=== PATIENT | male | born 1940 | race Caucasian/White ===

== ENCOUNTER 2016-02-11 13:59 | Outpatient (CLI) | payer MEDICARE, OTHER | END 2016-02-11 14:00 | disposition home or self-care (01) | LOC: BURLAB 13:59 | PROVIDERS: ATTEND Family Medicine | DX: I82.409 Acute embolism and thrombosis of unspecified deep veins of unspecified lower extremity (principal) | CPT/HCPCS: 36415; 85610 ==

== ENCOUNTER 2016-03-08 15:59 | Outpatient (CLI) | payer MEDICARE, OTHER ==
[2016-03-08 16:32] LABS: #Basophils 0.1 thou/uL (0.0-0.2); #Eosinphils 0.1 thou/uL (0.0-0.7); #Lymphocytes 3.7 thou/uL (1.20-3.40); #Monocytes 0.6 thou/uL (0.11-0.59); #Neutrophils 3.7 thou/uL (1.40-6.50); %Basophils 0.9 % (0.0-1.0); %Eosinophils 1.5 % (0.0-10.0); %Monocytes 6.8 % (0.0-10.0); Hematocrit 40.9 % (42.0-52.0); Mean Platelet Volume 6.2 fL (7.4-10.4); Red Blood Cell (RBC) Count 4.39 mill/uL (4.70-6.10); White Blood Cell (WBC) Count 8.1 thou/uL (4.8-10.8)
[2016-03-08 16:36] LABS: Prothrombin Time 27.3 SEC (12.0-14.7)
[2016-03-08 16:46] LABS: ALT (SGPT) 23 U/L (0-55); AST (SGOT) 24 U/L (5-34); Alkaline Phosphatase 54 U/L (40-150); Anion Gap 14 mmol/L (10-20); BUN (Urea Nitrogen) 25 mg/dL (8.4-25.7); Bilirubin, Total 0.6 mg/dL (0.2-1.2); Calc. Creatinine Clearance 0 mL/min (70-130); Calcium 8.7 mg/dL (7.8-10.44); Carbon Dioxide 23 mmol/L (23-31); Chloride 109 mmol/L (98-107); Estimated GFR-MDRD 46; Protein, Total 7.2 g/dL (5.8-8.1)
== END 2016-03-08 16:00 | disposition home or self-care (01) ==
LOC: HPCALD 15:59
PROVIDERS: ATTEND Family Medicine
DX: I82.409 Acute embolism and thrombosis of unspecified deep veins of unspecified lower extremity (principal); R53.83 Other fatigue; R41.3 Other amnesia
CPT/HCPCS: 36415; 80053; 82607; 84443; 85025; 85610

== ENCOUNTER 2016-04-07 13:31 | Outpatient (CLI) | payer MEDICARE, OTHER ==
[2016-04-07 13:56] LABS: Prothrombin Time 31.7 SEC (12.0-14.7)
== END 2016-04-07 13:32 | disposition home or self-care (01) ==
LOC: BURLAB 13:31
PROVIDERS: ATTEND Family Medicine
DX: I82.409 Acute embolism and thrombosis of unspecified deep veins of unspecified lower extremity (principal)
CPT/HCPCS: 36415; 85610

== ENCOUNTER 2016-05-05 13:56 | Outpatient (CLI) | payer MEDICARE, OTHER ==
[2016-05-05 14:58] LABS: INR-International Normal Ratio 3.1; Prothrombin Time 31.4 SEC (12.0-14.7)
== END 2016-05-05 13:57 | disposition home or self-care (01) ==
LOC: BURLAB 13:56
PROVIDERS: ATTEND Family Medicine
DX: I82.409 Acute embolism and thrombosis of unspecified deep veins of unspecified lower extremity (principal)
CPT/HCPCS: 36415; 85610

== ENCOUNTER 2016-05-25 18:41 | Emergency (ER) | payer MEDICARE, OTHER ==
[2016-05-25] MEDS ORDERED: HYDROcodone/Acetaminophen 10/325 mg Tablet ONE (19:55)
[2016-05-25] MEDS ORDERED: Ibuprofen 800 MG TAB ONE (19:56)
--- NOTE | 2016-05-25 22:26 | RAD ---
LEFT THUMB THREE VIEWS: 05/25/16 Comparison is made with the films of the hand done earlier. There has been a successful reduction of the dislocation of the thumb. The rounded bony density on the volar aspect of the IP joint may actu ally be an accessory ossicle. IMPRESSION: Successful reduction. POS: HOME
--- NOTE | 2016-05-25 22:28 | RAD ---
LEFT HAND THREE VIEWS: 05/25/16 There is a dorsal dislocation of the thumb at the IP joint. One of the views suggests some small cor tical avulsions. There also are sesamoid bones involved in this joint as well. Elsewhere in the hand, one sees some arterial calcifications and some mild arthritic changes in the IP joints of the fingers. IMPRESSION: Dorsal thumb dislocation. POS: HOME
--- NOTE | 2016-05-25 22:38 | RAD ---
CHEST TWO VIEWS: 05/25/16 Comparison is made with a 08/25/15 study. The heart is mildly enlarged but unchanged in size. The mediastinum shows no widening or shift. Medi an sternotomy sutures are noted from prior surgery. There is no vascular congestion, edema or acute infiltrate. There are a few areas of focal pleural thickening along the left lateral hemithorax, particularly ad jacent to the left 7th and 8th ribs. Fractures here are probable, but it would probably take dedicat ed rib films to be certain. There is no sign of pneumothorax. IMPRESSION: 1. Mild cardiomegaly, unchanged. 2. Areas of pleural thickening on the left that are suspicious for secondary findings from frac tures of possibly the 7th and 8th ribs. POS: HOME
== END 2016-05-25 20:28 | disposition home or self-care (01) ==
LOC: BURERS 18:41
DX: S22.32XA Fracture of one rib, left side, initial encounter for closed fracture (principal); S63.1 Subluxation and dislocation of thumb; I10 Essential (primary) hypertension; E78.5 Hyperlipidemia, unspecified; F41.9 Anxiety disorder, unspecified; Z79.899 Other long term (current) drug therapy; W18.30XA Fall on same level, unspecified, initial encounter
CPT/HCPCS: 26770; 71020

== ENCOUNTER 2016-06-02 15:44 | Outpatient (CLI) | payer MEDICARE, OTHER ==
[2016-06-02 16:02] LABS: INR-International Normal Ratio 3.1; Prothrombin Time 33.1 SEC (12.0-14.7)
== END 2016-06-02 15:45 | disposition home or self-care (01) ==
LOC: BURLAB 15:44
PROVIDERS: ATTEND Family Medicine
DX: I82.409 Acute embolism and thrombosis of unspecified deep veins of unspecified lower extremity (principal)
CPT/HCPCS: 36415; 85610

== ENCOUNTER 2016-07-10 10:04 | Outpatient (CLI) | payer MEDICARE, OTHER ==
[2016-07-10 11:05] LABS: INR-International Normal Ratio 2.8
== END 2016-07-10 10:05 ==
LOC: HPCALD 10:04
PROVIDERS: ATTEND Family Medicine
DX: I82.409 Acute embolism and thrombosis of unspecified deep veins of unspecified lower extremity (principal)
CPT/HCPCS: 36415; 85610

== ENCOUNTER 2016-08-14 18:27 | Emergency (ER) | payer MEDICARE, OTHER ==
[2016-08-14 18:58] LABS: #Basophils 0.1 thou/uL (0.0-0.2); #Lymphocytes 2.4 thou/uL (1.20-3.40); #Monocytes 0.7 thou/uL (0.11-0.59); %Basophils 0.4 % (0.0-1.0); %Eosinophils 0.3 % (0.0-10.0); %Lymphocytes 19.5 % (21.0-51.0); %Monocytes 5.5 % (0.0-10.0); %Neutrophils 74.3 % (42.0-75.0); Hemoglobin 14.1 g/dL (14.0-18.0); Mean Corpuscular HGB CONC 33.6 g/dL (32.0-36.0); Mean Corpuscular Volume 92.2 fl (80.0-94.0); Mean Platelet Volume 6.8 fL (7.4-10.4); Platelet Count 190 thou/uL (130-400); RBC Distribution Width 13.8 % (11.5-14.5); Red Blood Cell (RBC) Count 4.55 mill/uL (4.70-6.10); White Blood Cell (WBC) Count 12.1 thou/uL (4.8-10.8)
[2016-08-14 19:13] LABS: ALT (SGPT) 33 U/L (8-55); AST (SGOT) 32 U/L (5-34); Albumin 4.2 g/dL (3.4-4.8); Alkaline Phosphatase 57 U/L (40-150); Anion Gap 17 mmol/L (10-20); BUN (Urea Nitrogen) 23 mg/dL (8.4-25.7); Bilirubin, Total 0.6 mg/dL (0.2-1.2); Calc. Creatinine Clearance 0 mL/min (70-130); Calcium 8.7 mg/dL (7.8-10.44); Carbon Dioxide 21 mmol/L (23-31); Chloride 112 mmol/L (98-107); Estimated GFR-MDRD 33; Globulin 3.6 g/dL (2.4-3.5); Glucose 105 mg/dL (83-110); Lipase 17 U/L (8-78); Potassium 4.7 mmol/L (3.5-5.1); Protein, Total 7.8 g/dL (5.8-8.1); Sodium 145 mmol/L (136-145)
[2016-08-14 19:16] LABS: Bilirubin Negative (Negative); Blood, Urine Negative (Negative); Clarity Clear (Clear); Glucose, Urine (Dipstick) Negative (Negative); Leukocyte Negative (Negative); Nitrite Negative (Negative); Protein, Urine (Dipstick) Trace mg/dL (Neg-Trace); Specific Gravity, Urine 1.025 (1.005-1.030); Urobilinogen 0.2 mg/dL (0.2-1.0)
[2016-08-14] MEDS ORDERED: Ondansetron HCl/PF 4 MG/2 ML Vial ONE (19:27)
--- NOTE | 2016-08-14 21:49 | CT ---
CT ABDOMEN AND PELVIS WITHOUT CONTRAST RENAL STONE PROTOCOL: Date: 08-14-16 Comparison: 01-07-02 Axial slices were acquired then coronal reconstructions were done. FINDINGS: Bilateral renal calculi are present. In addition, there is mild right hydronephrosis due to distal u reteral calculi. There is a 3-4 mm calculus a couple of centimeters shy of the right UVJ and there i s an additional 2 mm calculus at the right UVJ. No ureteral calculi were seen on the left side. The lung bases are clear. The liver, spleen, pancreas and adrenal glands were unremarkable within th e limitations of a noncontrast study. The aorta shows no aneurysm. There has been a prior cholecyste ctomy. The bowel is nondistended with no sign of obstruction. No inflammatory changes are seen in or around bowel. No free air or free fluid was present. CT of the pelvis was remarkable only for the distal right ureteral calculi. No inflammatory changes or free fluid was seen. Large course calcifications are seen in the patient's prostate gland. Degene rative changes are present throughout the lumbar spine. IMPRESSION: 1. Bilateral ureteral calculi. 2. Mild right hydronephrosis secondary to two distal right ureteral calculi near the UVJ. POS: HOME
== END 2016-08-14 19:53 | disposition home or self-care (01) ==
LOC: BURERS 18:27
DX: N13.2 Hydronephrosis with renal and ureteral calculous obstruction (principal); I10 Essential (primary) hypertension; E78.5 Hyperlipidemia, unspecified; F41.9 Anxiety disorder, unspecified; Z86.718 Personal history of other venous thrombosis and embolism; Z79.01 Long term (current) use of anticoagulants; Z79.899 Other long term (current) drug therapy; Z79.891 Long term (current) use of opiate analgesic
CPT/HCPCS: 36415; 74176; 80053; 81003; 83690; 85025; 87086; 96374; 96375; J2270; J2405

== ENCOUNTER 2016-09-13 14:29 | Outpatient (CLI) | payer MEDICARE, OTHER ==
[2016-09-13 15:05] LABS: INR-International Normal Ratio 2.5; Prothrombin Time 28.4 SEC (12.0-14.7)
== END 2016-09-13 14:30 | disposition home or self-care (01) ==
LOC: BURLAB 14:29
PROVIDERS: ATTEND Family Medicine
DX: I82.409 Acute embolism and thrombosis of unspecified deep veins of unspecified lower extremity (principal)
CPT/HCPCS: 36415; 85610

== ENCOUNTER 2016-10-13 12:28 | Outpatient (CLI) | payer MEDICARE, OTHER ==
[2016-10-13 13:17] LABS: Prothrombin Time 32.3 SEC (12.0-14.7)
== END 2016-10-13 12:29 | disposition home or self-care (01) ==
LOC: BURLAB 12:28
PROVIDERS: ATTEND Family Medicine
DX: I82.409 Acute embolism and thrombosis of unspecified deep veins of unspecified lower extremity (principal)
CPT/HCPCS: 36415; 85610

== ENCOUNTER 2016-10-31 19:23 | Emergency (ER) | payer MEDICARE, OTHER ==
[2016-10-31] MEDS ORDERED: cefTRIAXone\\ROCEPHIN 1 GM VIAL ONE (19:47)
[2016-10-31] MEDS ORDERED: Sodium Chloride 0.9% 100 ML ONE (19:47)
[2016-10-31 19:53] LABS: #Basophils 0.1 thou/uL (0.0-0.2); #Eosinphils 0.1 thou/uL (0.0-0.7); #Lymphocytes 3.2 thou/uL (1.20-3.40); #Monocytes 0.7 thou/uL (0.11-0.59); #Neutrophils 9.7 thou/uL (1.40-6.50); %Basophils 0.5 % (0.0-1.0); %Eosinophils 0.8 % (0.0-10.0); %Lymphocytes 23.2 % (21.0-51.0); %Monocytes 4.7 % (0.0-10.0); %Neutrophils 70.7 % (42.0-75.0); Hemoglobin 12.9 g/dL (14.0-18.0); Mean Corpuscular Hemoglobin 31.2 pg (27.0-31.0); Mean Corpuscular Volume 94.5 fl (80.0-94.0); Mean Platelet Volume 6.7 fL (7.4-10.4); Platelet Count 167 thou/uL (130-400); RBC Distribution Width 14.2 % (11.5-14.5); Red Blood Cell (RBC) Count 4.13 mill/uL (4.70-6.10); White Blood Cell (WBC) Count 13.7 thou/uL (4.8-10.8)
[2016-10-31 20:04] LABS: PTT 74.1 SEC (22.9-36.1); Prothrombin Time 42.5 SEC (12.0-14.7)
[2016-10-31 20:11] LABS: ALT (SGPT) 34 U/L (8-55); AST (SGOT) 22 U/L (5-34); Albumin 3.9 g/dL (3.4-4.8); Alkaline Phosphatase 56 U/L (40-150); Anion Gap 16 mmol/L (10-20); BUN (Urea Nitrogen) 28 mg/dL (8.4-25.7); Bilirubin, Total 0.5 mg/dL (0.2-1.2); Calc. Creatinine Clearance 0 mL/min (70-130); Calcium 8.7 mg/dL (7.8-10.44); Carbon Dioxide 20 mmol/L (23-31); Chloride 113 mmol/L (98-107); Estimated GFR-MDRD 35; Globulin 3.2 g/dL (2.4-3.5); Glucose 167 mg/dL (83-110); Potassium 4.5 mmol/L (3.5-5.1); Protein, Total 7.1 g/dL (5.8-8.1); Sodium 144 mmol/L (136-145)
[2016-10-31 20:19] LABS: INR-International Normal Ratio 4.2
== END 2016-10-31 20:35 | disposition home or self-care (01) ==
LOC: BURERS 19:23
DX: L03.115 Cellulitis of right lower limb (principal); I10 Essential (primary) hypertension; E78.5 Hyperlipidemia, unspecified; F41.9 Anxiety disorder, unspecified; F03.90 Unspecified dementia, unspecified severity, without behavioral disturbance, psychotic disturbance, mood disturbance, and anxiety; Z86.718 Personal history of other venous thrombosis and embolism
CPT/HCPCS: 80053; 85025; 85610; 85730; 96374; J0696; J7050

== ENCOUNTER 2016-11-10 10:29 | Outpatient (CLI) | payer MEDICARE, OTHER ==
--- NOTE | 2016-11-10 22:47 | ULT ---
RIGHT LOWER EXTREMITY VENOUS ULTRASOUND 11/10/16 Color duplex doppler ultrasonography of the right lower extremity was performed. No echogenic clot w as seen. All deep veins were freely compressible from groin to ankle. There was normal doppler respo nse to augmentation maneuvers. IMPRESSION: No evidence of DVT. POS: HOME
== END 2016-11-10 10:30 | disposition home or self-care (01) ==
LOC: BURULT 10:29
PROVIDERS: ATTEND Family Medicine
DX: M79.604 Pain in right leg (principal)

== ENCOUNTER 2016-12-11 17:47 | Emergency (ER) | payer MEDICARE, OTHER ==
[2016-12-11] MEDS ORDERED: Lidocaine 1% w/Epinephrine 1:100K 30 ML VIAL ONE (17:54)
[2016-12-11] MEDS ORDERED: Bacitracin Zinc 1 Packet ONE (18:38)
== END 2016-12-11 18:45 | disposition home or self-care (01) ==
LOC: BURERS 17:47
DX: S81.811A Laceration without foreign body, right lower leg, initial encounter (principal); I10 Essential (primary) hypertension; E78.5 Hyperlipidemia, unspecified; F41.9 Anxiety disorder, unspecified; F03.90 Unspecified dementia, unspecified severity, without behavioral disturbance, psychotic disturbance, mood disturbance, and anxiety; W22.8XXA Striking against or struck by other objects, initial encounter
CPT/HCPCS: 12004; J2001

== ENCOUNTER 2017-01-09 11:20 | Outpatient (CLI) | payer MEDICARE, OTHER ==
--- NOTE | 2017-01-09 22:29 | RAD ---
RIGHT LEG TWO VIEWS 01/09/17 No fracture or area of bony destruction was seen. The tibia and fibula appear intact. A knee arthropl asty is noted. There is some soft tissue calcifications present in this patient as well as some soft tissue swelling in the calf region. IMPRESSION: No acute bony finding. POS: HOME
== END 2017-01-09 11:21 | disposition home or self-care (01) ==
LOC: BURRAD 11:20
PROVIDERS: ATTEND Family Medicine
DX: S81.811D Laceration without foreign body, right lower leg, subsequent encounter (principal)

== ENCOUNTER 2017-06-21 14:34 | Emergency (ER) | payer MEDICARE, OTHER ==
[2017-06-21] MEDS ORDERED: traMADol HCl 50 MG TAB ONE (14:51)
[2017-06-21 16:13] LABS: INR-International Normal Ratio 2.2; Prothrombin Time 24.9 SEC (12.0-14.7)
[2017-06-21 16:17] LABS: Band 2 % (5-11); Hemoglobin 13.6 g/dL (14.0-18.0); Lymphocytes 32 % (21-51); MDiff Complete? YES; Mean Corpuscular Hemoglobin 30.9 pg (27.0-31.0); Mean Corpuscular Volume 88.2 fl (80.0-94.0); Mean Platelet Volume 6.5 fL (7.4-10.4); Monocytes 5 % (0-10); Neutrophil 61 % (42-75); Platelet Count 196 thou/uL (130-400); RBC Distribution Width 13.8 % (11.5-14.5); Small Platelets SLIGHT; White Blood Cell (WBC) Count 12.3 thou/uL (4.8-10.8)
--- NOTE | 2017-06-21 21:30 | RAD ---
CHEST TWO VIEWS: 06/21/17 Comparison is made with a 05/25/16 study. There are no congestive changes or pleural effusions. No gross fractures were identified. A somewhat rounded area just to the right of the right heart border near the diaphragm may be a portion of the r ight pulmonary artery. It is slightly rounded like a mass, but I do not see any evidence of such on t he study done last year. Nevertheless, this requires further followup. The right paratracheal density is most likely tortuous vessels. IMPRESSION: 1. Mild cardiomegaly without congestive change. No acute traumatic changes were appreciated. 2. 2.4 cm rounded density to the right of the right heart border. This really may just be part o f the pulmonary artery, but it is different enough from last year that followup is required. At the v abilio least, I would get a better PA chest in inspiration. If that does not solve the problem, or if on e wants to be more definitive now, then an elective CT might be considered. Code T POS: HOME
== END 2017-06-21 15:35 | disposition short-term general hospital (02) ==
LOC: BURERS 14:34
DX: S00.83XA Contusion of other part of head, initial encounter (principal); S20.211A Contusion of right front wall of thorax, initial encounter; S00.33XA Contusion of nose, initial encounter; Z79.01 Long term (current) use of anticoagulants; I10 Essential (primary) hypertension; E78.5 Hyperlipidemia, unspecified; F41.9 Anxiety disorder, unspecified; F03.90 Unspecified dementia, unspecified severity, without behavioral disturbance, psychotic disturbance, mood disturbance, and anxiety; Z79.899 Other long term (current) drug therapy; W17.89XA Other fall from one level to another, initial encounter
CPT/HCPCS: 71046; 85025; 85610; 85730

== ENCOUNTER 2018-03-08 09:52 | Emergency (ER) | payer MEDICARE, OTHER ==
[2018-03-08] MEDS ORDERED: Ciprofloxacin 500 MG TAB ONE (10:10)
[2018-03-08] MEDS ORDERED: Dicyclomine 20 MG TAB ONE (10:10)
[2018-03-08 10:24] LABS: Bilirubin Negative (Negative); Clarity Clear (Clear); Glucose, Urine (Dipstick) Negative (Negative); Leukocyte Negative (Negative); Nitrite Negative (Negative); Protein, Urine (Dipstick) Negative (Neg-Trace); Specific Gravity, Urine 1.025 (1.005-1.030); Urobilinogen 0.2 mg/dL (0.2-1.0); pH, Urine 5.5 (5.0-9.0)
[2018-03-08 10:25] LABS: Blood, Urine Trace (Negative)
[2018-03-08 10:29] LABS: Bacteria/HPF Rare-Few HPF (None Seen); RBC/HPF 0-3 HPF (0-3); Squamous Epithelial 0-3 HPF (0-3); WBC/HPF 0-3 HPF (0-3)
== END 2018-03-08 10:35 | disposition home or self-care (01) ==
LOC: BURERS 09:52
DX: R19.7 Diarrhea, unspecified (principal); E78.5 Hyperlipidemia, unspecified; F41.9 Anxiety disorder, unspecified; I10 Essential (primary) hypertension; F03.90 Unspecified dementia, unspecified severity, without behavioral disturbance, psychotic disturbance, mood disturbance, and anxiety; Z79.01 Long term (current) use of anticoagulants; Z79.899 Other long term (current) drug therapy; Z86.718 Personal history of other venous thrombosis and embolism
CPT/HCPCS: 81003; 81015; 99284

== ENCOUNTER 2018-04-08 16:06 | Outpatient (CLI) | payer MEDICARE, OTHER ==
[2018-04-08 16:39] LABS: INR-International Normal Ratio 2.1; Prothrombin Time 23.4 SEC (12.0-14.7)
--- NOTE | 2018-04-08 20:53 | RAD ---
LEFT KNEE TWO VIEWS: Date: 04-08-18 FINDINGS: There is probably a small amount of joint fluid but not a large effusion. Osteoarthritis is present w ith medial joint space narrowing and some osteophytes. No fracture or dislocation was seen. Some thic kening and obscuration of the cortex of the proximal fibular shaft is probably old and long-standing and not currently significant. IMPRESSION: Moderate osteoarthritis. Probable small amount of joint fluid. POS: HOME
== END 2018-04-08 16:07 | disposition home or self-care (01) ==
LOC: BURRAD 16:06
PROVIDERS: ATTEND Nurse Practitioner Family
DX: M25.562 Pain in left knee (principal); Z51.81 Encounter for therapeutic drug level monitoring; M17.12 Unilateral primary osteoarthritis, left knee; I82.409 Acute embolism and thrombosis of unspecified deep veins of unspecified lower extremity; Z79.01 Long term (current) use of anticoagulants
CPT/HCPCS: 36415; 85610; 85730

== ENCOUNTER 2018-10-21 21:59 | Emergency (ER) | payer MEDICARE, OTHER ==
[2018-10-21] MEDS ORDERED: Ketorolac Tromethamine 30 MG/ML VIAL ONE (22:23)
[2018-10-21 22:26] LABS: Bilirubin Negative (Negative); Blood, Urine Trace (Negative); Clarity Clear (Clear); Glucose, Urine (Dipstick) Negative (Negative); Leukocyte Negative (Negative); Nitrite Negative (Negative); Protein, Urine (Dipstick) Negative (Neg-Trace); Urobilinogen 0.2 mg/dL (Less than 2)
[2018-10-21 22:32] LABS: Squamous Epithelial 0-3 HPF (0-3); WBC/HPF 0-3 HPF (0-3)
[2018-10-21 22:47] LABS: INR-International Normal Ratio 1.9; Prothrombin Time 21.4 SEC (12.0-14.7)
[2018-10-21 22:51] LABS: Hemoglobin 12.1 g/dL (14.0-18.0); Mean Corpuscular HGB CONC 33.2 g/dL (32.0-36.0); Mean Corpuscular Hemoglobin 31.2 pg (27.0-31.0); Mean Corpuscular Volume 93.9 fL (78.0-98.0); Mean Platelet Volume 6.6 fL (7.4-10.4); Platelet Count 180 thou/uL (130-400); RBC Distribution Width 13.5 % (11.5-14.5); Red Blood Cell (RBC) Count 3.88 mill/uL (4.70-6.10); White Blood Cell (WBC) Count 9.1 thou/uL (4.8-10.8)
[2018-10-21 22:57] LABS: ALT (SGPT) 20 U/L (8-55); AST (SGOT) 21 U/L (5-34); Albumin 4.1 g/dL (3.4-4.8); Alkaline Phosphatase 59 U/L (40-150); Anion Gap 14 mmol/L (10-20); BUN (Urea Nitrogen) 24 mg/dL (8.4-25.7); Bilirubin, Total 0.5 mg/dL (0.2-1.2); Calc. Creatinine Clearance 0 mL/min (70-130); Calcium 9.2 mg/dL (7.8-10.44); Carbon Dioxide 23 mmol/L (23-31); Chloride 108 mmol/L (98-107); Estimated GFR-MDRD 43; Globulin 3.2 g/dL (2.4-3.5); Glucose 100 mg/dL (83-110); Lipase 16 U/L (8-78); Potassium 4.3 mmol/L (3.5-5.1); Protein, Total 7.3 g/dL (5.8-8.1); Sodium 141 mmol/L (136-145)
[2018-10-21 23:06] LABS: Eosinophils 1 % (0-10); Lymphocytes 28 % (21-51); MDiff Complete? YES; Monocytes 7 % (0-10); Neutrophil 64 % (42-75); Platelet Morphology Comment Appears Adequate; RBC Morphology Normal
--- NOTE | 2018-10-22 06:48 | CT ---
PRELIMINARY REPORT/[facility]/EMERGENCY AFTER HOURS PROCEDURE: EXAM: CT Abdomen and Pelvis Without Contrast EXAM DATE/TIME: 10/21/2018 10:39 PM CLINICAL HISTORY: 77 years old, male; Other: Lt flank pain TECHNIQUE: Imaging protocol: Computed tomography of the abdomen and pelvis without contrast. Radiation optimization: All CT scans at this facility use at least one of these dose optimization manny hniques: automated exposure control; mA and/or kV adjustment per patient size (includes targeted exam s where dose is matched to clinical indication); or iterative reconstruction. COMPARISON: No relevant prior studies available. FINDINGS: Lungs: There is subpleural atelectasis of the dependent portions of the lungs. Pleural space: There are trace bilateral pleural effusions with dependent atelectasis. Liver: There are no focal liver lesions identified. Gallbladder and bile ducts: There has been a cholecystectomy. Pancreas: The pancreas appears normal. No ductal dilatation. Spleen: The spleen is normal. Adrenals: The adrenal glands are normal. Kidneys and ureters: There is a 8 x 5 x 8 mm obstructing calculus within the proximal left ureter wit h associated moderate left hydronephrosis. There are additional bilateral renal pelvic calculi as wel l, more on the left. There is a 3 x 4 mm calculus within the distal right ureter without evidence of rig ht hydroureteronephrosis. Stomach and bowel: The stomach is normal. The duodenum is unremarkable. There is no evidence of intes tinal perforation or obstruction. Appendix: No evidence of appendicitis. Intraperitoneal space: Unremarkable. No free air. No significant fluid collection. Vasculature: Unremarkable. No abdominal aortic aneurysm. Lymph nodes: Unremarkable. No enlarged lymph nodes. Bladder: Unremarkable as visualized. Reproductive: The prostate gland demonstrates nonspecific parenchymal calcifications. Bones/joints: Unremarkable. No acute fracture. Soft tissues: Unremarkable. IMPRESSION: There is a 8 x 5 x 8 mm obstructing calculus within the proximal left ureter with associated moderate left hydronephrosis. Thank you for allowing us to participate in the care of your patient. Dictated and Authenticated by: Vladimir Angeles MD 10/21/2018 11:15 PM Central Time ([place] & [place]) FINAL REPORT CT ABDOMEN AND PELVIS WITHOUT CONTRAST: Date: 10/21/18 The patient presents with right flank pain. There is a prior history of stones. Today's exam shows a large proximal left ureteral calculus causing moderate left hydronephrosis. It m easures about 10.0 x 7.0 mm. Renal calculi are also present in each kidney, more in the left than the right. In addition, there is a 4.0 mm distal right ureteral calculus, but it is not causing any hydr onephrosis or hydroureter. The lung bases are clear, except for some minor scarring or atelectasis. A small hiatal hernia is sug gested. The liver and spleen show no acute findings, and the pancreas appears normal as well, No adre nal masses seen. Arteriosclerotic change is seen in the aorta, but there is no aneurysm. The bowel shows no distention or wall thickening. There is no free air or free fluid. CT of the pelvis shows no pelvic masses, inflammatory changes, or free fluid. Degenerative changes ar e present throughout the spine. IMPRESSION: 1. 10.0 x 7.0 mm proximal left ureteral calculus near the UPJ causing moderate left hydronephrosis. 2. 4.0 mm distal right ureteral calculus, but causing no evidence of obstruction. This calculus is n ear the UVJ on the right side. 3. Bilateral nonobstructing renal calculi, more in the left kidney than right. Report in agreement with preliminary reading by Deirdre. POS: HOME
== END 2018-10-21 23:33 | disposition home or self-care (01) ==
LOC: BURERS 21:59
DX: N13.2 Hydronephrosis with renal and ureteral calculous obstruction (principal); I10 Essential (primary) hypertension; E78.5 Hyperlipidemia, unspecified; F41.9 Anxiety disorder, unspecified; F03.90 Unspecified dementia, unspecified severity, without behavioral disturbance, psychotic disturbance, mood disturbance, and anxiety; Z79.899 Other long term (current) drug therapy; Z79.01 Long term (current) use of anticoagulants; Z86.718 Personal history of other venous thrombosis and embolism
CPT/HCPCS: 74176; 80053; 81003; 81015; 83690; 85025; 85610; 96374; J1885

== ENCOUNTER 2018-11-30 12:15 | Emergency (ER) | payer MEDICARE, OTHER ==
[2018-11-30 13:20] LABS: #Basophils 0.1 thou/uL (0.0-0.2); #Lymphocytes 2.7 thou/uL (1.20-3.40); #Monocytes 0.7 thou/uL (0.11-0.59); %Basophils 0.5 % (0.0-1.0); %Eosinophils 0.1 % (0.0-10.0); %Lymphocytes 25.8 % (21.0-51.0); %Neutrophils 66.6 % (42.0-75.0); Hemoglobin 11.3 g/dL (14.0-18.0); Mean Corpuscular HGB CONC 31.7 g/dL (32.0-36.0); Mean Corpuscular Volume 94.7 fL (78.0-98.0); Mean Platelet Volume 6.7 fL (7.4-10.4); Platelet Count 179 thou/uL (130-400); RBC Distribution Width 13.5 % (11.5-14.5); Red Blood Cell (RBC) Count 3.75 mill/uL (4.70-6.10); White Blood Cell (WBC) Count 10.5 thou/uL (4.8-10.8)
[2018-11-30 13:23] LABS: INR-International Normal Ratio 1.9; PTT 41.5 SEC (22.9-36.1); Prothrombin Time 21.8 SEC (12.0-14.7)
[2018-11-30 13:32] LABS: ALT (SGPT) 18 U/L (8-55); AST (SGOT) 16 U/L (5-34); Albumin 3.9 g/dL (3.4-4.8); Alkaline Phosphatase 66 U/L (40-110); Anion Gap 15 mmol/L (10-20); BUN (Urea Nitrogen) 19 mg/dL (8.4-25.7); Bilirubin, Total 0.8 mg/dL (0.2-1.2); Calc. Creatinine Clearance 0 mL/min (70-130); Calcium 9.1 mg/dL (7.8-10.44); Carbon Dioxide 24 mmol/L (23-31); Chloride 107 mmol/L (98-107); Estimated GFR-MDRD 50; Globulin 3.3 g/dL (2.4-3.5); Glucose 104 mg/dL (83-110); Potassium 4.6 mmol/L (3.5-5.1); Protein, Total 7.2 g/dL (5.8-8.1); Sodium 141 mmol/L (136-145)
[2018-11-30 13:43] LABS: Bilirubin Negative (Negative); Blood, Urine Moderate (Negative); Clarity Clear (Clear); Glucose, Urine (Dipstick) Negative (Negative); Leukocyte Negative (Negative); Nitrite Negative (Negative); Protein, Urine (Dipstick) Negative (Neg-Trace); Urobilinogen 0.2 mg/dL (Less than 2)
[2018-11-30 13:51] LABS: Bacteria/HPF Rare-Few HPF (None Seen); Squamous Epithelial 0-3 HPF (0-3); WBC/HPF 0-3 HPF (0-3)
[2018-11-30 13:52] LABS: Mucous/LPF 1+ LPF (<2+)
--- NOTE | 2018-11-30 16:41 | RAD ---
PORTABLE CHEST: 11/30/18 An AP portable film at 1244 is compared with a 06/21/17 study. The heart size is stable. There are no congestive changes or pleural effusions. The lungs are clear. IMPRESSION: No acute thoracic finding. POS: HOME
== END 2018-11-30 14:27 | disposition home or self-care (01) ==
LOC: BURERS 12:15
DX: R60.0 Localized edema (principal); I10 Essential (primary) hypertension; E78.5 Hyperlipidemia, unspecified; Z86.718 Personal history of other venous thrombosis and embolism; F41.9 Anxiety disorder, unspecified; F03.90 Unspecified dementia, unspecified severity, without behavioral disturbance, psychotic disturbance, mood disturbance, and anxiety; Z79.899 Other long term (current) drug therapy; Z79.01 Long term (current) use of anticoagulants
CPT/HCPCS: 36415; 71045; 80053; 81003; 81015; 83605; 85025; 85610; 85730; 87040

== ENCOUNTER 2018-12-04 11:39 | Emergency (ER) | payer MEDICARE, OTHER | END 2018-12-04 12:17 | disposition home or self-care (01) | LOC: BURERS 11:39 | DX: R60.0 Localized edema (principal); I10 Essential (primary) hypertension; E78.5 Hyperlipidemia, unspecified; F41.9 Anxiety disorder, unspecified; F03.90 Unspecified dementia, unspecified severity, without behavioral disturbance, psychotic disturbance, mood disturbance, and anxiety; Z79.899 Other long term (current) drug therapy; Z79.01 Long term (current) use of anticoagulants; Z86.718 Personal history of other venous thrombosis and embolism | CPT/HCPCS: 99283 ==

== ENCOUNTER 2019-02-06 15:34 | Inpatient (IN) | payer MEDICARE, OTHER ==
[2019-02-06] MEDS ORDERED: Bisacodyl 10 MG SUPP PR PRN (17:34)
[2019-02-06] MEDS ORDERED: Senokot S 8.6-50 MG TAB PO PRN (17:34)
[2019-02-06] MEDS ORDERED: Meropenem 1 GM VIAL IVPB SCH (21:00)
[2019-02-06] MEDS ORDERED: TOPIRAMATE 50 MG PO SCH (21:00)
[2019-02-06] MEDS: Simethicone Chewable 80 MG TAB PO SCH ×2 (21:03→21:05)
[2019-02-06] MEDS: Citalopram 20 MG TAB PO SCH (21:05)
[2019-02-06] MEDS: Meropenem 1 GM in Sodium Chloride 0.9% 100 ML IVPB SCH ×2 (21:05→21:55)
[2019-02-06] MEDS: Atorvastatin Calcium 40 MG TAB PO SCH (21:05)
[2019-02-06] MEDS: Topiramate 25 MG TAB PO SCH (21:05)
[2019-02-06] MEDS: Finasteride 5 MG TAB PO SCH (21:05)
[2019-02-06] MEDS: Enoxaparin Sodium 100 MG/ML SYRINGE SC SCH (21:06)
[2019-02-07] MEDS: Meropenem 1 GM in Sodium Chloride 0.9% 100 ML IVPB SCH ×6 (05:16→21:28)
[2019-02-07 06:33] LABS: INR-International Normal Ratio 1.1; Prothrombin Time 13.9 SEC (12.0-14.7)
[2019-02-07] MEDS ORDERED: Erythromycin Base 0.5% Ophth Oint 3.5 gm Tube ONE (08:11)
[2019-02-07] MEDS: Simethicone Chewable 80 MG TAB PO SCH ×4 (08:48→21:24)
[2019-02-07] MEDS: Topiramate 25 MG TAB PO SCH ×2 (08:48→21:22)
[2019-02-07] MEDS: Erythromycin Base 0.5% Ophth Oint 3.5 gm Tube R EYE SCH ×2 (08:49→21:25)
[2019-02-07] MEDS: Enoxaparin Sodium 100 MG/ML SYRINGE SC SCH ×2 (08:49→21:27)
[2019-02-07] MEDS: Warfarin Sodium 5 MG TAB PO SCH (16:58)
[2019-02-07] MEDS: Finasteride 5 MG TAB PO SCH (21:23)
[2019-02-07] MEDS: Torsemide 20 MG TAB PO SCH (21:23)
[2019-02-07] MEDS: Atorvastatin Calcium 40 MG TAB PO SCH (21:23)
[2019-02-07] MEDS: Citalopram 20 MG TAB PO SCH (21:23)
[2019-02-07] MEDS: ALPRAZolam 0.5 MG TAB PO PRN (21:32)
[2019-02-08] MEDS: Meropenem 1 GM in Sodium Chloride 0.9% 100 ML IVPB SCH ×6 (05:02→20:48)
[2019-02-08 06:19] LABS: Hemoglobin 12.5 g/dL (14.0-18.0); INR-International Normal Ratio 1.1; Platelet Count 158 thou/uL (130-400)
[2019-02-08] MEDS: Erythromycin Base 0.5% Ophth Oint 3.5 gm Tube R EYE SCH ×2 (08:59→20:47)
[2019-02-08] MEDS: Enoxaparin Sodium 100 MG/ML SYRINGE SC SCH ×2 (09:00→20:47)
[2019-02-08] MEDS: Topiramate 25 MG TAB PO SCH ×2 (09:01→20:45)
[2019-02-08] MEDS: Simethicone Chewable 80 MG TAB PO SCH ×4 (09:01→22:00)
[2019-02-08] MEDS: Warfarin Sodium 5 MG TAB PO SCH (16:13)
[2019-02-08] MEDS: Nystatin Powder 15 GM BOT TOP PRN (16:13)
[2019-02-08] MEDS: Atorvastatin Calcium 40 MG TAB PO SCH (20:45)
[2019-02-08] MEDS: Citalopram 20 MG TAB PO SCH (20:45)
[2019-02-08] MEDS: Torsemide 20 MG TAB PO SCH (20:45)
[2019-02-08] MEDS: Finasteride 5 MG TAB PO SCH (20:47)
[2019-02-09] MEDS: Meropenem 1 GM in Sodium Chloride 0.9% 100 ML IVPB SCH ×6 (06:05→21:13)
[2019-02-09 06:22] LABS: INR-International Normal Ratio 1.1
[2019-02-09] MEDS: Enoxaparin Sodium 100 MG/ML SYRINGE SC SCH ×2 (09:41→21:07)
[2019-02-09] MEDS: Simethicone Chewable 80 MG TAB PO SCH ×4 (09:44→21:22)
[2019-02-09] MEDS: Topiramate 25 MG TAB PO SCH ×2 (09:44→21:16)
[2019-02-09] MEDS: Erythromycin Base 0.5% Ophth Oint 3.5 gm Tube R EYE SCH ×2 (09:45→21:22)
[2019-02-09] MEDS: Warfarin Sodium 7.5 MG TAB PO SCH (17:24)
[2019-02-09] MEDS: Citalopram 20 MG TAB PO SCH (21:20)
[2019-02-09] MEDS: Torsemide 20 MG TAB PO SCH (21:20)
[2019-02-09] MEDS: Finasteride 5 MG TAB PO SCH (21:21)
[2019-02-09] MEDS: Atorvastatin Calcium 40 MG TAB PO SCH (21:22)
[2019-02-10] MEDS: Meropenem 1 GM in Sodium Chloride 0.9% 100 ML IVPB SCH ×6 (06:09→21:00)
[2019-02-10 06:11] LABS: INR-International Normal Ratio 1.1
[2019-02-10 06:12] LABS: Hemoglobin 12.2 g/dL (14.0-18.0); Platelet Count 188 thou/uL (130-400)
[2019-02-10] MEDS: Topiramate 25 MG TAB PO SCH ×2 (08:25→21:01)
[2019-02-10] MEDS: Simethicone Chewable 80 MG TAB PO SCH ×4 (08:25→21:02)
[2019-02-10] MEDS: Nystatin Powder 15 GM BOT TOP PRN (08:25)
[2019-02-10] MEDS: Enoxaparin Sodium 100 MG/ML SYRINGE SC SCH ×2 (08:26→21:02)
[2019-02-10] MEDS ORDERED: Erythromycin Base 0.5% Ophth Oint 3.5 gm Tube ONE (08:39)
[2019-02-10] MEDS: Erythromycin Base 0.5% Ophth Oint 3.5 gm Tube R EYE SCH ×2 (08:50→21:01)
[2019-02-10] MEDS ORDERED: Nystatin 100,000 Units/mL UDCUP SSW SCH (13:00)
[2019-02-10] MEDS ORDERED: Nystatin 500,000 UNITS/5 ML UDCUP SSW SCH (13:00)
[2019-02-10] MEDS: Warfarin Sodium 7.5 MG TAB PO SCH (17:29)
[2019-02-10] MEDS: Nystatin 500,000 UNITS/5 ML UDCUP SSW SCH ×2 (17:29→20:59)
[2019-02-10] MEDS: Torsemide 20 MG TAB PO SCH (21:01)
[2019-02-10] MEDS: Finasteride 5 MG TAB PO SCH (21:01)
[2019-02-10] MEDS: Atorvastatin Calcium 40 MG TAB PO SCH (21:02)
[2019-02-10] MEDS: Citalopram 20 MG TAB PO SCH (21:02)
[2019-02-11] MEDS: Meropenem 1 GM in Sodium Chloride 0.9% 100 ML IVPB SCH ×6 (05:21→20:29)
[2019-02-11 06:46] LABS: INR-International Normal Ratio 1.1; Prothrombin Time 14.3 SEC (12.0-14.7)
[2019-02-11] MEDS: Nystatin 500,000 UNITS/5 ML UDCUP SSW SCH ×4 (08:40→20:32)
[2019-02-11] MEDS: Simethicone Chewable 80 MG TAB PO SCH ×4 (08:40→20:48)
[2019-02-11] MEDS: Topiramate 25 MG TAB PO SCH ×2 (08:40→20:33)
[2019-02-11] MEDS: Enoxaparin Sodium 100 MG/ML SYRINGE SC SCH ×2 (08:41→20:32)
[2019-02-11] MEDS: Erythromycin Base 0.5% Ophth Oint 3.5 gm Tube R EYE SCH ×2 (08:41→20:48)
[2019-02-11] MEDS: ALPRAZolam 0.5 MG TAB PO PRN (14:48)
[2019-02-11] MEDS: Warfarin Sodium 7.5 MG TAB PO SCH (16:56)
[2019-02-11] MEDS: Citalopram 20 MG TAB PO SCH (20:32)
[2019-02-11] MEDS: Finasteride 5 MG TAB PO SCH (20:33)
[2019-02-11] MEDS: Atorvastatin Calcium 40 MG TAB PO SCH (20:33)
[2019-02-11] MEDS: Torsemide 20 MG TAB PO SCH (20:33)
[2019-02-12] MEDS: Meropenem 1 GM in Sodium Chloride 0.9% 100 ML IVPB SCH ×6 (04:28→20:29)
[2019-02-12 06:14] LABS: INR-International Normal Ratio 1.2; Prothrombin Time 15.2 SEC (12.0-14.7)
[2019-02-12 06:26] LABS: #Basophils 0.1 thou/uL (0.0-0.2); #Eosinphils 0.3 thou/uL (0.0-0.7); #Lymphocytes 3.5 thou/uL (1.20-3.40); #Monocytes 0.5 thou/uL (0.11-0.59); #Neutrophils 3.2 thou/uL (1.40-6.50); %Basophils 0.7 % (0.0-1.0); %Eosinophils 3.7 % (0.0-10.0); %Lymphocytes 46.7 % (21.0-51.0); %Monocytes 6.9 % (0.0-10.0); Hemoglobin 11.4 g/dL (14.0-18.0); Mean Corpuscular HGB CONC 30.8 g/dL (32.0-36.0); Mean Corpuscular Hemoglobin 27.9 pg (27.0-31.0); Mean Corpuscular Volume 90.6 fL (78.0-98.0); Mean Platelet Volume 6.1 fL (7.4-10.4); Platelet Count 187 thou/uL (130-400); RBC Distribution Width 16.3 % (11.5-14.5); Red Blood Cell (RBC) Count 4.08 mill/uL (4.70-6.10); White Blood Cell (WBC) Count 7.6 thou/uL (4.8-10.8)
[2019-02-12 06:28] LABS: ALT (SGPT) 47 U/L (8-55); AST (SGOT) 28 U/L (5-34); Alkaline Phosphatase 68 U/L (40-110); Anion Gap 11 mmol/L (10-20); BUN (Urea Nitrogen) 17 mg/dL (8.4-25.7); Bilirubin, Total 0.5 mg/dL (0.2-1.2); Calc. Creatinine Clearance 71 mL/min (70-130); Calcium 8.4 mg/dL (7.8-10.44); Carbon Dioxide 26 mmol/L (23-31); Chloride 108 mmol/L (98-107); Estimated GFR-MDRD 70; Globulin 3.2 g/dL (2.4-3.5); Glucose 104 mg/dL (83-110); Protein, Total 6.2 g/dL (5.8-8.1); Sodium 141 mmol/L (136-145)
[2019-02-12] MEDS: Topiramate 25 MG TAB PO SCH ×2 (09:05→20:42)
[2019-02-12] MEDS: Nystatin 500,000 UNITS/5 ML UDCUP SSW SCH ×4 (09:05→20:43)
[2019-02-12] MEDS: Simethicone Chewable 80 MG TAB PO SCH ×4 (09:06→20:41)
[2019-02-12] MEDS: Enoxaparin Sodium 100 MG/ML SYRINGE SC SCH ×2 (09:06→20:35)
[2019-02-12] MEDS: Erythromycin Base 0.5% Ophth Oint 3.5 gm Tube R EYE SCH ×2 (09:18→20:46)
[2019-02-12] MEDS: Warfarin Sodium 7.5 MG TAB PO SCH (17:33)
[2019-02-12] MEDS: Citalopram 20 MG TAB PO SCH (20:37)
[2019-02-12] MEDS: Finasteride 5 MG TAB PO SCH (20:39)
[2019-02-12] MEDS: Torsemide 20 MG TAB PO SCH (20:40)
[2019-02-12] MEDS: Atorvastatin Calcium 40 MG TAB PO SCH (20:43)
[2019-02-12] MEDS ORDERED: Bacitracin 1 PK ONE (20:57)
[2019-02-12] MEDS: Bacitracin 1 PK TOP SCH (20:57)
[2019-02-12] MEDS: ALPRAZolam 0.5 MG TAB PO PRN (22:23)
[2019-02-12] MEDS: Acetaminophen 325 MG TAB PO PRN (22:23)
[2019-02-13] MEDS: Meropenem 1 GM in Sodium Chloride 0.9% 100 ML IVPB SCH ×6 (04:43→21:18)
[2019-02-13 06:33] LABS: INR-International Normal Ratio 1.2; Prothrombin Time 15.1 SEC (12.0-14.7)
[2019-02-13] MEDS: Nystatin Powder 15 GM BOT TOP PRN ×2 (09:43→20:31)
[2019-02-13] MEDS: Enoxaparin Sodium 100 MG/ML SYRINGE SC SCH ×2 (09:44→20:31)
[2019-02-13] MEDS: Nystatin 500,000 UNITS/5 ML UDCUP SSW SCH ×4 (09:45→20:50)
[2019-02-13] MEDS: Erythromycin Base 0.5% Ophth Oint 3.5 gm Tube R EYE SCH ×2 (09:46→20:31)
[2019-02-13] MEDS: Topiramate 25 MG TAB PO SCH ×2 (09:46→20:30)
[2019-02-13] MEDS: Bacitracin 1 PK TOP SCH ×2 (09:47→21:17)
[2019-02-13] MEDS: Simethicone Chewable 80 MG TAB PO SCH ×4 (09:47→22:53)
[2019-02-13] MEDS: Acetaminophen 325 MG TAB PO PRN (13:52)
[2019-02-13] MEDS: Warfarin Sodium 7.5 MG TAB PO SCH (17:39)
[2019-02-13] MEDS: Torsemide 20 MG TAB PO SCH (20:29)
[2019-02-13] MEDS: Atorvastatin Calcium 40 MG TAB PO SCH (20:29)
[2019-02-13] MEDS: Citalopram 20 MG TAB PO SCH (20:30)
[2019-02-13] MEDS: Finasteride 5 MG TAB PO SCH (20:30)
[2019-02-13] MEDS: ALPRAZolam 0.5 MG TAB PO PRN (20:50)
[2019-02-14 04:53] LABS: Hemoglobin 11.6 g/dL (14.0-18.0); Platelet Count 183 thou/uL (130-400)
[2019-02-14 05:00] LABS: INR-International Normal Ratio 1.2; Prothrombin Time 15.1 SEC (12.0-14.7)
[2019-02-14] MEDS: Meropenem 1 GM in Sodium Chloride 0.9% 100 ML IVPB SCH ×6 (05:07→20:11)
[2019-02-14] MEDS: Enoxaparin Sodium 100 MG/ML SYRINGE SC SCH ×2 (08:57→20:12)
[2019-02-14] MEDS: Topiramate 25 MG TAB PO SCH ×2 (08:59→20:12)
[2019-02-14] MEDS: Nystatin 500,000 UNITS/5 ML UDCUP SSW SCH ×4 (08:59→20:12)
[2019-02-14] MEDS: Simethicone Chewable 80 MG TAB PO SCH ×4 (09:00→20:29)
[2019-02-14] MEDS: Erythromycin Base 0.5% Ophth Oint 3.5 gm Tube R EYE SCH (09:00)
[2019-02-14] MEDS: Nystatin Powder 15 GM BOT TOP PRN ×2 (09:01→20:23)
[2019-02-14] MEDS ORDERED: Bacitracin 1 PK ONE (09:05)
[2019-02-14] MEDS: Bacitracin 1 PK TOP SCH ×2 (09:06→20:12)
[2019-02-14] MEDS: Acetaminophen 325 MG TAB PO PRN ×2 (09:22→11:50)
[2019-02-14] MEDS: ALPRAZolam 0.5 MG TAB PO PRN ×2 (11:19→20:12)
[2019-02-14] MEDS: Warfarin Sodium 7.5 MG TAB PO SCH (16:46)
[2019-02-14] MEDS: Finasteride 5 MG TAB PO SCH (20:12)
[2019-02-14] MEDS: Atorvastatin Calcium 40 MG TAB PO SCH (20:13)
[2019-02-14] MEDS: Torsemide 20 MG TAB PO SCH (20:13)
[2019-02-14] MEDS: Citalopram 20 MG TAB PO SCH (20:13)
[2019-02-15] MEDS: Meropenem 1 GM in Sodium Chloride 0.9% 100 ML IVPB SCH ×6 (05:07→20:31)
[2019-02-15 05:33] LABS: INR-International Normal Ratio 1.3; Prothrombin Time 16.1 SEC (12.0-14.7)
[2019-02-15] MEDS ORDERED: Bacitracin 1 PK ONE ×2 (08:25→20:15)
[2019-02-15] MEDS: Bacitracin 1 PK TOP SCH ×2 (09:02→20:33)
[2019-02-15] MEDS: Enoxaparin Sodium 100 MG/ML SYRINGE SC SCH ×2 (09:03→20:31)
[2019-02-15] MEDS: Simethicone Chewable 80 MG TAB PO SCH ×4 (09:05→20:32)
[2019-02-15] MEDS: Nystatin 500,000 UNITS/5 ML UDCUP SSW SCH ×4 (09:05→20:31)
[2019-02-15] MEDS: Topiramate 25 MG TAB PO SCH ×2 (09:07→20:32)
[2019-02-15] MEDS: ALPRAZolam 0.5 MG TAB PO PRN ×2 (10:56→22:04)
[2019-02-15] MEDS: Warfarin Sodium 7.5 MG TAB PO SCH (17:47)
[2019-02-15] MEDS: Citalopram 20 MG TAB PO SCH (20:32)
[2019-02-15] MEDS: Torsemide 20 MG TAB PO SCH (20:32)
[2019-02-15] MEDS: Finasteride 5 MG TAB PO SCH (20:32)
[2019-02-15] MEDS: Atorvastatin Calcium 40 MG TAB PO SCH (20:32)
[2019-02-16] MEDS: Meropenem 1 GM in Sodium Chloride 0.9% 100 ML IVPB SCH ×6 (04:07→21:28)
[2019-02-16 05:08] LABS: Hemoglobin 11.4 g/dL (14.0-18.0); INR-International Normal Ratio 1.3; Platelet Count 167 thou/uL (130-400); Prothrombin Time 16.2 SEC (12.0-14.7)
[2019-02-16] MEDS ORDERED: Bacitracin 1 PK ONE ×2 (08:38→20:47)
[2019-02-16] MEDS: Nystatin 500,000 UNITS/5 ML UDCUP SSW SCH ×4 (08:58→20:50)
[2019-02-16] MEDS: Bacitracin 1 PK TOP SCH ×2 (08:59→20:55)
[2019-02-16] MEDS: Enoxaparin Sodium 100 MG/ML SYRINGE SC SCH ×2 (08:59→20:25)
[2019-02-16] MEDS: Simethicone Chewable 80 MG TAB PO SCH ×4 (09:00→20:27)
[2019-02-16] MEDS: Topiramate 25 MG TAB PO SCH ×2 (09:00→20:26)
[2019-02-16] MEDS: ALPRAZolam 0.5 MG TAB PO PRN (10:41)
[2019-02-16] MEDS: Lorazepam 0.5 MG TAB PO PRN (16:19)
[2019-02-16] MEDS: Warfarin Sodium 7.5 MG TAB PO SCH (16:19)
[2019-02-16] MEDS: Citalopram 20 MG TAB PO SCH (20:26)
[2019-02-16] MEDS: Atorvastatin Calcium 40 MG TAB PO SCH (20:27)
[2019-02-16] MEDS: Torsemide 20 MG TAB PO SCH (20:27)
[2019-02-16] MEDS: Acetaminophen 325 MG TAB PO PRN (20:28)
[2019-02-16] MEDS: Finasteride 5 MG TAB PO SCH (20:28)
[2019-02-16] MEDS: Zolpidem Tartrate 5 MG TAB PO PRN (21:29)
[2019-02-17 04:29] LABS: INR-International Normal Ratio 1.5; Prothrombin Time 17.9 SEC (12.0-14.7)
[2019-02-17] MEDS: Meropenem 1 GM in Sodium Chloride 0.9% 100 ML IVPB SCH ×6 (05:00→21:40)
[2019-02-17] MEDS: Bacitracin 1 PK TOP SCH ×2 (09:16→21:42)
[2019-02-17] MEDS: Topiramate 25 MG TAB PO SCH ×2 (09:16→21:40)
[2019-02-17] MEDS: Simethicone Chewable 80 MG TAB PO SCH ×4 (09:16→21:41)
[2019-02-17] MEDS: Nystatin 500,000 UNITS/5 ML UDCUP SSW SCH ×4 (09:16→21:39)
[2019-02-17] MEDS: Enoxaparin Sodium 100 MG/ML SYRINGE SC SCH ×2 (09:16→21:41)
[2019-02-17] MEDS: Lorazepam 0.5 MG TAB PO PRN (16:03)
[2019-02-17] MEDS: Warfarin Sodium 7.5 MG TAB PO SCH (18:28)
[2019-02-17] MEDS ORDERED: Bacitracin 1 PK ONE (20:52)
[2019-02-17] MEDS: Nystatin Powder 15 GM BOT TOP PRN (21:40)
[2019-02-17] MEDS: Atorvastatin Calcium 40 MG TAB PO SCH (21:40)
[2019-02-17] MEDS: Finasteride 5 MG TAB PO SCH (21:40)
[2019-02-17] MEDS: Torsemide 20 MG TAB PO SCH (21:40)
[2019-02-17] MEDS: Citalopram 20 MG TAB PO SCH (21:41)
[2019-02-17] MEDS: Zolpidem Tartrate 5 MG TAB PO PRN (22:37)
[2019-02-18] MEDS: Lorazepam 0.5 MG TAB PO PRN ×2 (00:38→19:17)
[2019-02-18 05:50] LABS: INR-International Normal Ratio 1.6; Prothrombin Time 19.3 SEC (12.0-14.7)
[2019-02-18] MEDS: Meropenem 1 GM in Sodium Chloride 0.9% 100 ML IVPB SCH ×6 (06:01→20:30)
[2019-02-18 06:18] LABS: Hemoglobin 11.3 g/dL (14.0-18.0); Platelet Count 141 thou/uL (130-400)
[2019-02-18] MEDS: Nystatin 500,000 UNITS/5 ML UDCUP SSW SCH ×4 (09:24→20:30)
[2019-02-18] MEDS: Enoxaparin Sodium 100 MG/ML SYRINGE SC SCH ×2 (09:25→20:31)
[2019-02-18] MEDS: Topiramate 25 MG TAB PO SCH ×2 (09:26→20:32)
[2019-02-18] MEDS: Simethicone Chewable 80 MG TAB PO SCH ×4 (09:26→20:33)
[2019-02-18] MEDS: Bacitracin 1 PK TOP SCH (09:27)
[2019-02-18] MEDS: Acetaminophen 325 MG TAB PO PRN (17:14)
[2019-02-18] MEDS: Warfarin Sodium 7.5 MG TAB PO SCH (17:15)
[2019-02-18] MEDS: Bacitracin Zinc Ointment 30 gm TUBE TOP SCH (20:30)
[2019-02-18] MEDS: Finasteride 5 MG TAB PO SCH (20:32)
[2019-02-18] MEDS: Torsemide 20 MG TAB PO SCH (20:32)
[2019-02-18] MEDS: Atorvastatin Calcium 40 MG TAB PO SCH (20:32)
[2019-02-18] MEDS: Citalopram 20 MG TAB PO SCH (20:32)
[2019-02-18] MEDS: Zolpidem Tartrate 5 MG TAB PO PRN (20:33)
[2019-02-18] MEDS: Nystatin Powder 15 GM BOT TOP PRN (20:45)
[2019-02-19 04:30] LABS: INR-International Normal Ratio 1.8; Prothrombin Time 20.5 SEC (12.0-14.7)
[2019-02-19 04:41] LABS: Anisocytosis SLIGHT = 6-15 cells (100X) (0-5/hpf); Band 1 % (5-11); Eosinophils 4 % (0-10); Hemoglobin 11.6 g/dL (14.0-18.0); Lymphocytes 50 % (21-51); MDiff Complete? YES; Mean Corpuscular HGB CONC 31.1 g/dL (32.0-36.0); Mean Corpuscular Hemoglobin 29.5 pg (27.0-31.0); Mean Corpuscular Volume 94.7 fL (78.0-98.0); Mean Platelet Volume 6.5 fL (7.4-10.4); Monocytes 6 % (0-10); Neutrophil 39 % (42-75); Platelet Count 149 thou/uL (130-400); Platelet Morphology Comment Appears Adequate; RBC Distribution Width 17.2 % (11.5-14.5); Red Blood Cell (RBC) Count 3.93 mill/uL (4.70-6.10); Small Platelets SLIGHT; White Blood Cell (WBC) Count 8.2 thou/uL (4.8-10.8)
[2019-02-19 04:42] LABS: ALT (SGPT) 34 U/L (8-55); AST (SGOT) 16 U/L (5-34); Alkaline Phosphatase 65 U/L (40-110); Anion Gap 13 mmol/L (10-20); BUN (Urea Nitrogen) 20 mg/dL (8.4-25.7); Bilirubin, Total 0.4 mg/dL (0.2-1.2); Calc. Creatinine Clearance 70 mL/min (70-130); Calcium 8.1 mg/dL (7.8-10.44); Carbon Dioxide 21 mmol/L (23-31); Chloride 112 mmol/L (98-107); Estimated GFR-MDRD 73; Globulin 2.8 g/dL (2.4-3.5); Glucose 100 mg/dL (83-110); Potassium 3.9 mmol/L (3.5-5.1); Protein, Total 5.8 g/dL (5.8-8.1); Sodium 142 mmol/L (136-145)
[2019-02-19] MEDS: Meropenem 1 GM in Sodium Chloride 0.9% 100 ML IVPB SCH ×6 (06:08→21:06)
[2019-02-19] MEDS: Enoxaparin Sodium 100 MG/ML SYRINGE SC SCH ×2 (09:19→19:32)
[2019-02-19] MEDS: Bacitracin Zinc Ointment 30 gm TUBE TOP SCH ×3 (09:19→21:00)
[2019-02-19] MEDS: Simethicone Chewable 80 MG TAB PO SCH ×4 (09:20→21:04)
[2019-02-19] MEDS: Nystatin 500,000 UNITS/5 ML UDCUP SSW SCH ×4 (09:20→21:00)
[2019-02-19] MEDS: Topiramate 25 MG TAB PO SCH ×2 (09:20→20:22)
[2019-02-19 13:44] VITALS: BMI 28.7
[2019-02-19] MEDS: Lorazepam 0.5 MG TAB PO PRN (15:41)
[2019-02-19] MEDS: Warfarin Sodium 7.5 MG TAB PO SCH (17:07)
[2019-02-19] MEDS: Finasteride 5 MG TAB PO SCH (19:31)
[2019-02-19] MEDS: Zolpidem Tartrate 5 MG TAB PO PRN ×2 (19:31→20:16)
[2019-02-19] MEDS: Citalopram 20 MG TAB PO SCH ×2 (19:32→20:16)
[2019-02-19] MEDS: Torsemide 20 MG TAB PO SCH (19:35)
[2019-02-19] MEDS: Nystatin Powder 15 GM BOT TOP PRN (20:21)
[2019-02-19] MEDS: Atorvastatin Calcium 40 MG TAB PO SCH (20:22)
[2019-02-20 04:49] LABS: Hemoglobin 11.3 g/dL (14.0-18.0); Platelet Count 143 thou/uL (130-400)
[2019-02-20 05:00] LABS: INR-International Normal Ratio 1.8; Prothrombin Time 21.2 SEC (12.0-14.7)
[2019-02-20] MEDS: Meropenem 1 GM in Sodium Chloride 0.9% 100 ML IVPB SCH ×6 (05:19→21:20)
[2019-02-20] MEDS: Enoxaparin Sodium 100 MG/ML SYRINGE SC SCH ×2 (11:28→20:37)
[2019-02-20] MEDS: Bacitracin Zinc Ointment 30 gm TUBE TOP SCH ×2 (11:30→20:42)
[2019-02-20] MEDS: Topiramate 25 MG TAB PO SCH ×2 (11:31→20:41)
[2019-02-20] MEDS: Nystatin 500,000 UNITS/5 ML UDCUP SSW SCH ×4 (11:31→20:39)
[2019-02-20] MEDS: Simethicone Chewable 80 MG TAB PO SCH ×4 (11:32→20:42)
[2019-02-20] MEDS: Lorazepam 0.5 MG TAB PO PRN (14:07)
[2019-02-20] MEDS: Warfarin Sodium 7.5 MG TAB PO SCH (16:59)
[2019-02-20] MEDS: Acetaminophen 325 MG TAB PO PRN (18:37)
[2019-02-20] MEDS: Atorvastatin Calcium 40 MG TAB PO SCH (20:40)
[2019-02-20] MEDS: Citalopram 20 MG TAB PO SCH (20:40)
[2019-02-20] MEDS: Torsemide 20 MG TAB PO SCH (20:41)
[2019-02-20] MEDS: Finasteride 5 MG TAB PO SCH (20:42)
[2019-02-20] MEDS: Zolpidem Tartrate 5 MG TAB PO PRN (20:42)
[2019-02-21 05:47] LABS: INR-International Normal Ratio 1.9; Prothrombin Time 21.5 SEC (12.0-14.7)
--- NOTE | 2019-02-21 08:55 | DIS ---
DATE OF ADMISSION: 02/06/2019 DATE OF DISCHARGE: 02/21/2019 ADMISSION DIAGNOSES: Pneumococcal meningitis, bacteremia due to Streptococcus pneumoniae, and generalized weakness. SECONDARY DIAGNOSES: Atrial fibrillation, coronary artery disease, hypertension , dyslipidemia, dysphagia, and dementia. PROCEDURES: None. HOSPITAL COURSE: This is an 78-year-old male, who transitioned here to [facility] for skilled stay s/p acute admission at [facility] in [place], where he presented status post seizure with accompanying metabolic encephalopathy. Subsequent workup revealed the patient to have pneumococcal meningitis and Streptococcus pneumoniae bacteremia, for which he was consulted on via Neurology and Infectious Disease, Dr. Burgos. The patient had a PICC line placed to the left upper extremity with directions to administer 21 days of meropenem to complete on 02/20/2019. As mentioned, he was transitioned here to complete his antibiotic course and participate with physical therapy and occupational therapy. The patient's labs were trended during his stay. He had no leukocytosis and a CRP level that measured less than 0.50. He remained afebrile throughout his stay. As for his mentation, he does have underlying dementia, and he had episodes of delirium with . Daughter of the patient declined for him to receive Seroquel to help treat his behavior disruptions. At time of discharge today, he does appear to be at his baseline mental status. His Coumadin dosing was uptitrated during his stay and bridged with Lovenox, and his current INR is 1.9. He is typically on Coumadin 5 mg daily except for 7.5 mg on Sunday, Sunday, and Sunday. I will transition this to 7 mg daily for continuity purposes, and he will need reassessment of his INR at the [facility], where he will transition at this point. Family is aware of the patient's transition back to the senior living. He has completed all antibiotics as advised and may follow up with Dr. Burgos as advised as well. DISPOSITION: The patient will discharge to [facility]. He will be followed up there by myself and the nurse practitioner. DISCHARGE MEDICATIONS: 1. Tylenol p.r.n. 2. Atorvastatin 40 mg at bedtime. 3. Dulcolax p.r.n. 4. Namenda 5 mg daily. 5. Pantoprazole 40 mg daily. 6. Senokot S p.r.n. 7. Topiramate 50 mg b.i.d. 8. Citalopram 40 mg daily. 9. Coumadin 7 mg daily. 10. Finasteride 5 mg at bedtime. 11. Simethicone p.r.n. 12. Alprazolam 0.25 mg t.i.d. p.r.n. 13. Torsemide 10 mg at bedtime. Job ID: [id number] [facility]
[2019-02-21] MEDS: Bacitracin Zinc Ointment 30 gm TUBE TOP SCH (09:12)
[2019-02-21] MEDS: Simethicone Chewable 80 MG TAB PO SCH ×2 (09:12→13:27)
[2019-02-21] MEDS: Nystatin 500,000 UNITS/5 ML UDCUP SSW SCH ×2 (09:12→13:27)
[2019-02-21] MEDS: Topiramate 25 MG TAB PO SCH (09:12)
[2019-02-21] MEDS: Lorazepam 0.5 MG TAB PO PRN (09:18)
[2019-02-21] MEDS: Acetaminophen 325 MG TAB PO PRN (10:41)
[2019-02-21 10:44] VITALS: BP 124/63; TEMP 98
[2019-02-21] MEDS: Meropenem 1 GM in Sodium Chloride 0.9% 100 ML IVPB SCH (12:27)
== END 2019-02-21 13:35 | DRG 95 ==
LOC: BURMED 17:16
PROVIDERS: ADMIT Family Medicine; ATTEND Family Medicine
DX: G00.1 Pneumococcal meningitis (principal); R78.81 Bacteremia; F05 Delirium due to known physiological condition; R53.1 Weakness; B95.3 Streptococcus pneumoniae as the cause of diseases classified elsewhere; I48.91 Unspecified atrial fibrillation; I25.10 Atherosclerotic heart disease of native coronary artery without angina pectoris; I10 Essential (primary) hypertension; E78.5 Hyperlipidemia, unspecified; F03.90 Unspecified dementia, unspecified severity, without behavioral disturbance, psychotic disturbance, mood disturbance, and anxiety; R13.10 Dysphagia, unspecified
CPT/HCPCS: 36415; 80053; 82565; 85014; 85018; 85025; 85049; 85610; 86140; J1650; J2185; J3490